=== PATIENT | female | born 1970 | race Caucasian/White ===

== ENCOUNTER → 2023-08-21 12:58 | Outpatient (REF) | payer BC, SELFPAY | LOC: RAD 12:58 | PROVIDERS: ATTENDING PHYSICIAN Registered Nurse | DX: M79.89 Other specified soft tissue disorders (principal); Z86.718 Personal history of other venous thrombosis and embolism | CPT/HCPCS: 93971 ==

== ENCOUNTER → 2023-10-10 06:35 | Day surgery (SDC) | payer BC, SELFPAY | LOC: GI 06:35 | PROVIDERS: ATTENDING PHYSICIAN Internal Medicine | DX: Z12.11 Encounter for screening for malignant neoplasm of colon (principal); Z83.710 Family history of adenomatous and serrated polyps; K63.5 Polyp of colon; D12.6 Benign neoplasm of colon, unspecified | CPT/HCPCS: 45385; 88305 ==

== ENCOUNTER → 2024-07-16 15:15 | Outpatient (REF) | payer BC, SELFPAY | LOC: WDC 15:15 | PROVIDERS: ATTENDING PHYSICIAN Family Medicine | DX: Z12.31 Encounter for screening mammogram for malignant neoplasm of breast (principal) | CPT/HCPCS: 77063; 77067 ==